=== PATIENT | female | born 1975 | race Caucasian/White ===

== ENCOUNTER → 2016-11-23 | Outpatient (CLI) | payer BC ==
[~2016-11-23] MED LIST: GILDESS PO; MOBIC15 MG PO; OMEPRAZOLE40 MG PO; RIZATRIPTAN10 MG PO; TOPAMAX 100 MG100 MG PO
== END ==
LOC: RAD 13:38
DX: R92.2 Inconclusive mammogram (principal)